=== PATIENT | female | born 1980 | race Caucasian/White ===

== ENCOUNTER 2019-03-22 21:47 | Inpatient (IN) | payer MEDICAID ==
[~2019-03-22] VITALS: Ht 154.9 cm; Wt 51.7 kg
--- NOTE | 2019-03-22 21:54 | NUR ---
PT [id number] FROM HOME C/O ABDOMINAL PAIN X1 DAY. RECENTLY HAD JESUS REMOVED FROM SURGERY ON 03/03/19. ALSO C/O SHARP BACK PAIN X1 DAY. BS118. PT AOX4. PT IN GOWN ON MONITOR IN BED 11. WILL CONTINUE TO MONITOR.
--- NOTE | 2019-03-22 22:15 | NUR ---
BLOOD DRAWN AND GIVEN TO PHLEB
--- NOTE | 2019-03-22 22:17 | NUR ---
TECH AT BEDSIDE FOR EKG
[2019-03-22] MEDS ORDERED: HYDROMORPHONE 1 MG/1 ML DISP.SYRIN ONE (22:20)
[2019-03-22] MEDS ORDERED: ONDANSETRON HCL/PF 4 MG/2 ML VIAL ONE (22:20)
[2019-03-22 22:24] LABS: BASOPHILS # (AUTO) 0.1 /CMM (0.0-0.2); BASOPHILS % (AUTO) 0.5 % (0.0-2.0); EOSINOPHILS % (AUTO) 0.6 % (0.0-6.0); HEMATOCRIT 33 % (33-45); HEMOGLOBIN 11.2 g/dL (11.5-14.8); LYMPHOCYTES # (AUTO) 2.2 /CMM (0.8-4.8); LYMPHOCYTES % (AUTO) 20.3 % (20.0-44.0); MEAN CORPUSCULAR HGB CONC 34 g/dl (31.0-36.0); MEAN CORPUSCULAR VOLUME 87 fL (82-100); MONOCYTES # (AUTO) 1.4 /CMM (0.1-1.30); MONOCYTES % (AUTO) 12.8 % (2.0-12.0); NEUTROPHILS # (AUTO) 7.2 /CMM (1.8-8.9); NEUTROPHILS % (AUTO) 65.8 % (43.0-81.0); PLATELET COUNT (AUTO) 454 /CMM (150-450); RED BLOOD CELL COUNT(AUTO) 3.76 MIL/uL (4.0-5.2); WHITE BLOOD COUNT (AUTO) 10.9 K/uL (4.3-11.0)
[2019-03-22] MEDS ORDERED: CT SWABBABLE VALVE TRANS SET 1 EA INFUS.SET MC ONE (22:29)
[2019-03-22] MEDS ORDERED: IOHEXOL-350 100 ML VIAL IV ONE (22:29)
[2019-03-22] MEDS ORDERED: IV NS 0.9% 250 ML IV ONE (22:29)
[2019-03-22] MEDS ORDERED: IV NS 0.9% 500 ML BAG IV ONE (22:30)
[2019-03-22] MEDS ORDERED: HYDROMORPHONE INJ 2 MG/ML DISP.SYRIN IV ONE (22:30)
[2019-03-22] MEDS ORDERED: ONDANSETRON HCL/PF 4 MG/2 ML VIAL IVP ONE (22:30)
[2019-03-22 22:32] LABS: CALCIUM, SERUM 9.1 mg/dL (8.5-10.1); CARBON DIOXIDE 28 mmol/L (21-32); CHLORIDE 100 mmol/L (98-107); CREATININE 0.5 mg/dL (0.6-1.3); GLUCOSE 97 mg/dL (74-106); POTASSIUM 3.6 mmol/L (3.5-5.1); SODIUM SERUM 138 mmol/L (136-145); UREA NITROGEN, BLOOD 11 mg/dL (7-18)
[2019-03-22 22:45] LABS: ALANINE AMINOTRANSFERASE 16 U/L (12-78); ALKALINE PHOSPHATASE 57 U/L (46-116); ASPARTATE AMINOTRANSFERASE 20 U/L (15-37); B-TYPE NATRIURETIC PEPTIDE 53 PG/ML (0-125); BILIRUBIN,TOTAL 0.4 mg/dL (0.2-1.0)
--- NOTE | 2019-03-22 22:55 | NUR ---
PT TAKEN TO RADIOLOGY VIA ADDIE
--- NOTE | 2019-03-22 23:11 | NUR ---
PT RETURNED FROM CT. PT TOLERATED WELL.
[2019-03-23] VITALS (13 sets, daily range): BP systolic 88–109; BP diastolic 50–81
--- NOTE | 2019-03-23 00:06 | NUR ---
CALLED ELAINA RE: CTA
[2019-03-23] MEDS ORDERED: PIPERACILLIN /TAZOBACTAM 3.375 G VIAL IV ONE (00:30)
[2019-03-23] MEDS ORDERED: PIPERACILLIN /TAZOBACTAM 3.375 G in IV D5W 50 ML IV ONE (00:30)
[2019-03-23] MEDS ORDERED: ENOXAPARIN SODIUM 60 MG/0.6 ML DISP.SYRIN SQ ONE ×2 (00:30→00:31)
--- NOTE | 2019-03-23 01:43 | NUR ---
REPORT GIVEN TO ICU NURSE FOR MAGGIE
[2019-03-23 01:55] LABS: APPEARANCE,URINE Clear (CLEAR); BILIRUBIN,URINE SMALL (NEGATIVE); BLOOD, URINE Large Ery/uL (NEGATIVE); COLOR,URINE Orange (YELLOW); KETONES,URINE >=160 (NEGATIVE); LEUKOCYTE ESTERASE ,URINE Negative (NEGATIVE); NITRITE, URINE Negative (NEGATIVE); PH,URINE 5.5 (5.0-8.0); PROTEIN,URINE Trace mg/dl (NEGATIVE); UGLUCOSE Negative (NEGATIVE); UROBILINOGEN,URINE 0.2 EU/dL (0.2)
[2019-03-23] MEDS ORDERED: ZOLPIDEM TARTRATE 5 MG TABLET PO PRN (02:00)
[2019-03-23] MEDS ORDERED: ACETAMINOPHEN 325 MG TABLET PO PRN (02:00)
[2019-03-23] MEDS ORDERED: IV 1/2NS 1000 ML 1,000 ML IV SCH (02:30)
[2019-03-23] MEDS ORDERED: MORPHINE SULFATE INJ 2 MG/ML DISP.SYRIN IM PRN (02:30)
[2019-03-23] MEDS ORDERED: VANCOMYCIN 1.25 GM in IV D5W 500 ML IV ONE (03:00)
[2019-03-23 03:11] LABS: BACTERIA,URINE Few /HPF (None Seen); RBC,URINE TOO NUMEROUS TO COUN /HPF (0-2); SQUAMOUS EPITHELIAL CELL,UR Rare /HPF (None Seen)
[2019-03-23] MEDS ORDERED: VANCOMYCIN 1 GM VIAL ONE (03:35)
[2019-03-23] MEDS ORDERED: VANCOMYCIN 500 MG VIAL ONE (03:35)
[2019-03-23 05:10] LABS: BASOPHILS % (AUTO) 0.4 % (0.0-2.0); EOSINOPHILS % (AUTO) 0.6 % (0.0-6.0); HEMATOCRIT 30 % (33-45); HEMOGLOBIN 10.3 g/dL (11.5-14.8); LYMPHOCYTES # (AUTO) 2.9 /CMM (0.8-4.8); LYMPHOCYTES % (AUTO) 28.9 % (20.0-44.0); MEAN CORPUSCULAR HGB CONC 34 g/dl (31.0-36.0); MEAN CORPUSCULAR VOLUME 87 fL (82-100); MONOCYTES # (AUTO) 1.2 /CMM (0.1-1.30); NEUTROPHILS # (AUTO) 5.8 /CMM (1.8-8.9); NEUTROPHILS % (AUTO) 58.1 % (43.0-81.0); PLATELET COUNT (AUTO) 375 /CMM (150-450); RED BLOOD CELL COUNT(AUTO) 3.46 MIL/uL (4.0-5.2); WHITE BLOOD COUNT (AUTO) 9.9 K/uL (4.3-11.0)
[2019-03-23 05:30] LABS: ALBUMIN 2.3 g/dL (3.4-5.0); BILIRUBIN,TOTAL 0.4 mg/dL (0.2-1.0); CALCIUM, SERUM 8.1 mg/dL (8.5-10.1); CREATININE 0.5 mg/dL (0.6-1.3); MAGNESIUM 1.8 mg/dL (1.8-2.4); PHOSPHORUS 3.7 mg/dL (2.5-4.9); POTASSIUM 3.8 mmol/L (3.5-5.1); TOTAL PROTEIN, SERUM 6.4 g/dL (6.4-8.2)
[2019-03-23] MEDS ORDERED: FEE PK DOSING 1 MIN EA MC ONE (06:46)
[2019-03-23] MEDS ORDERED: ZOSYN IVPB 3.375 G in IV D5W 50ml IV ONE (07:00)
--- NOTE | 2019-03-23 07:04 | NUR ---
RN NOTES 02:04 AM - ADMITTED TO ICU DUE TO PULMONARY EMBOLISM, PNA ON PUJA. LOBES. PATIENT IS FROM ER AOX3 VERBALLY RESPONSIVE. WITH HX OF GASTRIC ADENOCARCINOMA S/P EXLAP WITH GASTRIC RESECTION FOR KNOWN MALIGNANCY AT [facility] LAST 03/05/19. NKA. PLACED PT ON O2 2LPM VIA NC . AMBULATE AND TRANSFER SELF WITH ASSIST FROM GURNEY TO BED. ST ON TELE MONITOR. IV SITE ON RAC G 20 AND LH G 20 RUNNING WITH 1/2 NS @ 75 ML/HR. INTACT AND PATENT. PT VISITED BY , NATALIO ABOUT VISITING HOURS. KEPT PT CLEAN AND COMFORTABLE IN BED. ALL NEEDS ATTENDED CALL LIGHT KEPT WITHIN EASY REACH INSTRUCTION PROVIDED. WILL CONTINUE TO MONITOR.
--- NOTE | 2019-03-23 07:44 | NUR ---
STK MED IN [facility] NON ADMINISTERED FOR PT SAFETY.
[2019-03-23] MEDS: PIPERACILLIN /TAZOBACTAM 3.375 G in IV D5W 100 ML IV SCH ×2 (08:15→16:20)
[2019-03-23] MEDS ORDERED: ALBU8.5H8 IH (08:37)
[2019-03-23] MEDS ORDERED: AZIT250T PO (08:37)
[2019-03-23] MEDS ORDERED: ENOXAPARIN SODIUM 60 MG/0.6 ML DISP.SYRIN SQ SCH (09:00)
--- NOTE | 2019-03-23 09:00 | NUR ---
Pt seen & examined by Dr. Schneider. Verbal ordered to do VADIM Doppler of BLE.
--- NOTE | 2019-03-23 09:30 | NUR ---
Rec'd call from Dr. Howard, updated about pt status & condition. to see pt in a while.
[2019-03-23] MEDS ORDERED: IV NS 0.9% 1,000 ML IV PRN (11:00)
[2019-03-23] MEDS ORDERED: Potassium Chloride 20 MEQ in IV D5/ 0.9% NACL 1,000 ML IV PRN (11:00)
--- NOTE | 2019-03-23 11:30 | NUR ---
Health teaching done to pt regarding current disease process & pain management. Pt verbalizing that she doesn't want Dr. Howard to be his MD. Pt questioning MD's order. CN made aware. Dr. Howard made aware of this as well. Spoke w/ ADRIAN Mendoza & per CM will transfer pt to [facility] per her insurance. Pt informed about this & is upset now wanting to talk to the CM regarding the transfer. ADRIAN Mendoza to see pt. Addendum: 03/23/19 at 1300 by MARGO BURNS RN [id number] ADRIAN Mendoza was able to talk to the pt at bedside.
[2019-03-23] MEDS ORDERED: VANCOMYCIN 0.75 GM in IV D5W 250 ML IV SCH (12:00)
[2019-03-23] MEDS: RIVAROXABAN 15 MG TABLET PO SCH ×2 (12:17→16:19)
--- NOTE | 2019-03-23 12:50 | NUR ---
ICU/PUBLIC RELATIONS PLAYER OF CARE PT ENDORSED BY ICU MARGO TO CONTINUE CARE.
--- NOTE | 2019-03-23 12:50 | NUR ---
ICU TRANSFER NOTES: Pt transferred to [facility] 111/1 as ordered. IV lines kept patent & intact w/ no s/sx of infection/infiltration. All belongings sent w/ pt. Report given to Meche SHELTON. No concerns/issues identified during transfer.
--- NOTE | 2019-03-23 19:30 | NUR ---
MS/RN OPENING NOTES PT RECEIVED AWAKE, RESTING COMFORTABLY IN BED. A/OX4. PLACED ON 2L O2 VIA NC, BREATHING EVEN AND UNLABORED. DENIES SOB BUT NOTES 5/10 BACK PAIN UPON INSPIRATION AND COUGHING. PAIN MEDS OFFERED HOWEVER PT REFUSED AT THIS TIME. IN NO ACUTE RESPIRATORY DISTRESS. IV TO RAC PATENT AND INTACT RUNNING IVF ORDERED, IV TO LEFT HAND CURRENTLY RUNNING ZOSYN. REPOSITIONING AND WARM BLANKETS PROVIDED PER PT REQUEST. NO ADDITIONAL NEEDS EXPRESSED AT THIS TIME. BED IN LOW/LOCKED POSITION WITH HOB ELEVATED. WILL CONTINUE TO MONITOR
--- NOTE | 2019-03-23 19:30 | NUR ---
MS1/RN AM SHIFT INITIAL NOTES NO ACUTE CHANGE OF CONDITION NOTED SINCE PT WAS ENDORSED TO CONTINUE CARE. ALL NEEDS MET. PT ENDORSED TO PM NURSE TO CONTINUE CARE. CL WITHIN REACHED AND SAFETY MAINTAINED.
[2019-03-23] MEDS: VANCOMYCIN 1.25 GM in IV D5W 500 ML IV SCH (20:22)
--- NOTE | 2019-03-23 23:33 | NUR ---
RN NOTES IV TO LEFT HAND INFILTRATION. IV REMOVED AND IVF RESUMED TO RAC. EDUCATED PT TO ELEVATE EXTREMITY TO REDUCE SWELLING. WILL TRY IN INSERT NEW IV
[2019-03-24] MEDS: PIPERACILLIN /TAZOBACTAM 3.375 G in IV D5W 100 ML IV SCH ×3 (00:21→16:31)
--- NOTE | 2019-03-24 00:25 | NUR ---
RN NOTES NEW IV INSERTED TO LEFT HAND #24. FLUSHES WELL. ZOSYN CONNECTED AND INFUSING. IV TO RAC PATENT RUNNING IVF ORDERED.
[2019-03-24] MEDS: VANCOMYCIN 1.25 GM in IV D5W 500 ML IV SCH (03:26)
[2019-03-24 04:00] VITALS: BP 90/54
--- NOTE | 2019-03-24 06:33 | NUR ---
MS/RN CLOSING NOTES PT ASLEEP, RESPONSIVE TO NAME. A/OX4. ON 2L O2 VIA NC, BREATHING EVEN AND UNLABORED. DENIES SOB AND PAIN AT THIS TIME. IV TO RAC AND LEFT HAND PATENT AND INTACT. ASSISTED TO THE BATHROOM WITH STANDBY ASSIST. IN NO ACUTE RESPIRATORY DISTRESS. BED IN LOW/LOCKED POSITION WITH CALL LIGHT IN REACH. BILAT. UPPER SIDE RAILS IN PLACE, HOB ELEVATED. WILL ENDORSE TO ONCOMING SHIFT MAGGIE.
[2019-03-24 08:00] VITALS: BP_SYST 102; BP_DIAS 46; BP_DIAS 61
[2019-03-24 08:04] LABS: BASOPHILS % (AUTO) 0.6 % (0.0-2.0); EOSINOPHILS % (AUTO) 2.9 % (0.0-6.0); HEMATOCRIT 29 % (33-45); HEMOGLOBIN 9.8 g/dL (11.5-14.8); MEAN CORPUSCULAR HGB CONC 34 g/dl (31.0-36.0); MEAN CORPUSCULAR VOLUME 86 fL (82-100); MONOCYTES # (AUTO) 1.2 /CMM (0.1-1.30); MONOCYTES % (AUTO) 16.2 % (2.0-12.0); NEUTROPHILS % (AUTO) 53.3 % (43.0-81.0); PLATELET COUNT (AUTO) 386 /CMM (150-450); RED BLOOD CELL COUNT(AUTO) 3.32 MIL/uL (4.0-5.2); WHITE BLOOD COUNT (AUTO) 7.5 K/uL (4.3-11.0)
[2019-03-24 08:11] LABS: CALCIUM, SERUM 8.1 mg/dL (8.5-10.1); CREATININE 0.5 mg/dL (0.6-1.3); POTASSIUM 3.3 mmol/L (3.5-5.1)
[2019-03-24] MEDS: RIVAROXABAN 15 MG TABLET PO SCH ×2 (08:16→16:53)
[2019-03-24] MEDS ORDERED: POTASSIUM CHLORIDE 20 MEQ TAB.PRT.SR PO ONE (08:30)
[2019-03-24 09:09] LABS: EOSINOPHILS % (MANUAL) 5 % (0-4); LYMPHOCYTES % (MANUAL) 25 % (16-48); MONOCYTES % (MANUAL) 13 % (0-11.0); NEUTROPHILS % (MANUAL) 57 (42-76)
[2019-03-24] MEDS ORDERED: BISACODYL (5 MG) 5 MG TABLET.DR PO PRN (15:00)
[2019-03-24 16:00] VITALS: BP 131/72
--- NOTE | 2019-03-24 19:14 | NUR ---
Handoff to night nurse, CAT Chambers. Nik Eddy RN
--- NOTE | 2019-03-24 20:00 | NUR ---
RECIEVED ALERT AND ORIENTATED SMILING SOFT SPOKEN GOOD EYE CONTACT EXPLAINED TO HER WHAT WOULD BE DONE TONIGHT AND HER MEDICATIONS. STATED SHE HAD A GOOD FORMED BM AFTER THE MEDICATION THAT WAS GIVEN EARLIER
[2019-03-24] MEDS: VANCOMYCIN 0.75 GM in IV D5W 250 ML IV SCH (20:16)
[2019-03-24 21:14] VITALS: BP 102/63
[2019-03-24 22:00] VITALS: BP 102/63
[2019-03-24] MEDS: ONDANSETRON HCL/PF 4 MG/2 ML VIAL IVP PRN ×4 (22:34→23:32)
[2019-03-25] MEDS: PIPERACILLIN /TAZOBACTAM 3.375 G in IV D5W 100 ML IV SCH ×2 (00:11→08:35)
[2019-03-25] MEDS: VANCOMYCIN 0.75 GM in IV D5W 250 ML IV SCH ×2 (04:07→12:00)
--- NOTE | 2019-03-25 04:52 | NUR ---
ending notes; SLEPT THRU THE NIGHT. AT THE BEGINNING OF THE SHIFT SHE WAS ANXIOUS VERBALIZING CONCERNS ABOUT HER MEDICATIONS AND THE VANCO TROUGH. EASILY REASSURED. SHE STATED SHE HAD A GOOD FORMED SOFT BM BUT NOW THEY ARE COMING OUT WATERY. HER 02 SATS ON ROOM AIR 95 -98% SHE IS ABLE TO TALK IN SENTENCES W/O BECOMING SOB AMBULATES TO THE BATHROOM W/O BECOMING SOB. FAMILY CAME TO VISIT HER EARLIER IN THE SHIFT.
[2019-03-25 05:18] VITALS: BP 120/52
[2019-03-25 05:27] VITALS: BP 90/56
--- NOTE | 2019-03-25 07:30 | NUR ---
MS RN Opening Note Patient currently resting in bed with eyes open in Semi-Fowlers position, no acute distress noted. Easily arousable to verbal and tactile stimuli. Alert and oriented x4, able to make needs known. No acute distress. Respirations even and unlabored on room air. Peripheral IV access to the right AC 20 gauge, intact, patent and saline locked; access to the left hand 24 gauge, intact, patent and infusing fluids as ordered. Safety and fall precautions in place: bed in lowest and locked position, side rails up x2, bed alarm on, call light and personal possessions in reach, room well lit, floor clutter-free. Patient currently clean, dry and comfortable. Will continue to monitor and intervene as needed.
[2019-03-25 07:38] LABS: BASOPHILS % (AUTO) 0.5 % (0.0-2.0); EOSINOPHILS % (AUTO) 3.5 % (0.0-6.0); HEMATOCRIT 27 % (33-45); HEMOGLOBIN 9.3 g/dL (11.5-14.8); LYMPHOCYTES % (AUTO) 29.9 % (20.0-44.0); MEAN CORPUSCULAR HGB CONC 34 g/dl (31.0-36.0); MEAN CORPUSCULAR VOLUME 86 fL (82-100); NEUTROPHILS # (AUTO) 3.5 /CMM (1.8-8.9); NEUTROPHILS % (AUTO) 52.1 % (43.0-81.0); PLATELET COUNT (AUTO) 363 /CMM (150-450); RED BLOOD CELL COUNT(AUTO) 3.12 MIL/uL (4.0-5.2); WHITE BLOOD COUNT (AUTO) 6.8 K/uL (4.3-11.0)
[2019-03-25 08:01] LABS: CALCIUM, SERUM 8.5 mg/dL (8.5-10.1); CREATININE 0.7 mg/dL (0.6-1.3); POTASSIUM 3.5 mmol/L (3.5-5.1)
[2019-03-25] MEDS: RIVAROXABAN 15 MG TABLET PO SCH (08:37)
[2019-03-25] MEDS ORDERED: POLYETHYLENE GLYCOL 3350 17 GM POWD.PACK PO SCH (09:00)
[2019-03-25] MEDS ORDERED: LEVO500T75 PO (09:40)
[2019-03-25] MEDS ORDERED: RIVA10TA PO (09:40)
[2019-03-25 10:00] VITALS: BP 92/62
[2019-03-25] MEDS ORDERED: KEY,NONCONTROL,TO KEEP IN PYXI 1 EA MC ONE ×2 (10:29→13:20)
--- NOTE | 2019-03-25 16:10 | NUR ---
MS lead massage therapist Note Patient currently resting in bed with eyes open in Semi-Fowlers position, no acute distress noted. Easily arousable to verbal stimuli. Alert and oriented x4, able to make needs known. Respirations even and unlabored on room air. Peripheral IV access to the right AC 20 gauge and left hand 24 gauge removed with catheter tip intact. No redness, swelling or bleeding of the sites noted. ID bands removed. Refused skin assessment per protocol. Ambulates with steady gait. Discharge education, Exitcare and prescription information given to patient with spouse present. Verbalized understanding and signed form to acknowledge. All personal belongings accounted for. Discharged to [facility] in stable condition via wheelchair, escorted by staff. Discharged home via private car accompanied by family member, spouse.
== END 2019-03-25 16:10 | disposition home or self-care (01) | DRG 134 ==
LOC: ER 21:48 → ICU 03-23 01:23 → MEDSG1 03-23 12:27 → MEDSG2 03-24 16:02 → MEDSG1 03-24 16:41
PROVIDERS: ADMIT Student in an Organized Health Care Education/Training Program; ATTEND Internal Medicine
DX: I26.99 Other pulmonary embolism without acute cor pulmonale (principal); J15.9 Unspecified bacterial pneumonia; D68.59 Other primary thrombophilia; J90 Pleural effusion, not elsewhere classified; E44.1 Mild protein-calorie malnutrition; E88.09 Other disorders of plasma-protein metabolism, not elsewhere classified; E87.6 Hypokalemia; D50.9 Iron deficiency anemia, unspecified; D64.9 Anemia, unspecified; D47.3 Essential (hemorrhagic) thrombocythemia; Z68.21 Body mass index [BMI] 21.0-21.9, adult; Z85.028 Personal history of other malignant neoplasm of stomach; J98.11 Atelectasis; Z90.3 Acquired absence of stomach [part of]; M54.89 Other dorsalgia
CPT/HCPCS: 36415; 71045-TC; 72080-TC; 80048-TC; 80053-TC; 80076-TC; 80202-TC; 81000-TC; 83540-TC; 83605-TC; 83735-TC; 83880; 84100-TC; 84484-TC; 84703-TC; 85025-TC; 85730-TC; 87040-TC; 87081-TC; 93307-TC; 93970-TC; 97116-TC; 97530-TC; G0378; J1170; J1650; J2270; J2405; J2543; J3370; J3480; J3490; J7030; J7040; J7042; J7050; J7060; Q9967

== ENCOUNTER 2021-04-14 15:59 | Inpatient (IN) | payer MEDICAID ==
[~2021-04-14] VITALS: Ht 154.9 cm; Wt 49.9 kg
[~2021-04-14 15:59] MED LIST: ALBU8.5H8 IH; LEVO500T23 PO; RIVA10TA PO
--- NOTE | 2021-04-14 16:00 | NUR ---
PT BIB SELF C/O L GROIN PAIN STARTED LAST NIGH. PT IS AAOX4, NOT IN RESPIRATORY DISTRESS, V/S STABLE, KEPT RESTED AND COMFORTABLE. WILL CONTINUE TO MONITOR.
--- NOTE | 2021-04-14 16:16 | NUR ---
SEEN AND EXAMINED BY .
--- NOTE | 2021-04-14 16:20 | NUR ---
FWS FACULTY ASSISTANT AT BEDSIDE FOR ULTRASOUND.
[2021-04-14 17:11] LABS: BASOPHILS % (AUTO) 0.7 % (0.0-2.0); EOSINOPHILS % (AUTO) 0.7 % (0.0-6.0); HEMATOCRIT 29 % (33-45); HEMOGLOBIN 8.4 g/dL (11.5-14.8); LYMPHOCYTES # (AUTO) 3.1 K/uL (0.8-4.8); LYMPHOCYTES % (AUTO) 47.8 % (20.0-44.0); MEAN CORPUSCULAR HGB CONC 30 g/dl (31.0-36.0); MEAN CORPUSCULAR VOLUME 68 fL (82-100); MONOCYTES # (AUTO) 0.6 K/uL (0.1-1.30); MONOCYTES % (AUTO) 8.5 % (2.0-12.0); NEUTROPHILS # (AUTO) 2.8 K/uL (1.8-8.9); NEUTROPHILS % (AUTO) 42.3 % (43.0-81.0); PLATELET COUNT (AUTO) 212 K/uL (150-450); RED BLOOD CELL COUNT(AUTO) 4.24 MIL/uL (4.0-5.2); WHITE BLOOD COUNT (AUTO) 6.5 K/uL (4.3-11.0)
[2021-04-14 17:25] LABS: BILIRUBIN,URINE NEGATIVE (NEGATIVE); LEUKOCYTE ESTERASE ,URINE TRACE (NEGATIVE); NITRITE, URINE POSITIVE (NEGATIVE); PH,URINE 6.5 (5.0-8.0); PROTEIN,URINE 100 mg/dl (NEGATIVE); UGLUCOSE NEGATIVE (NEGATIVE)
[2021-04-14 17:28] LABS: COLOR,URINE RED (YELLOW)
[2021-04-14 17:31] LABS: BACTERIA,URINE None seen /HPF (None Seen); RBC,URINE TOO NUMEROUS TO COUN /HPF (0-2); SQUAMOUS EPITHELIAL CELL,UR 0-2 /HPF (None Seen)
[2021-04-14 17:52] LABS: CALCIUM, SERUM 8.6 mg/dL (8.5-10.1); CREATININE 0.7 mg/dL (0.6-1.3)
[2021-04-14 17:58] LABS: ALBUMIN 3.8 g/dL (3.4-5.0); BILIRUBIN,DIRECT 0.1 mg/dL (0.0-0.2); BILIRUBIN,TOTAL 0.3 mg/dL (0.2-1.0); TOTAL PROTEIN, SERUM 7.5 g/dL (6.4-8.2)
[2021-04-14 18:14] LABS: LYMPHOCYTES % (MANUAL) 47 % (16-48); MONOCYTES % (MANUAL) 7 % (0-11.0); NEUTROPHILS % (MANUAL) 46 (42-76)
--- NOTE | 2021-04-14 21:22 | NUR ---
PER DAVION CARLISLE, UNABLE TO FIND HOSPITAL WITH OB-STAFF INTERNIST OFFICE BASED ONLY. OK TO ADMIT AT [facility].
--- NOTE | 2021-04-14 21:23 | NUR ---
DR LEANDRO SHARMA PER DR LÓPEZ
--- NOTE | 2021-04-14 22:08 | NUR ---
MS 323-2
--- NOTE | 2021-04-14 22:19 | NUR ---
REPORT GIVEN TO YEHUDA SHELTON FOR MAGGIE
--- NOTE | 2021-04-14 23:00 | NUR ---
MS DIRECTOR OF SAFETY NOTES: RECEIVED PATIENT FROM ER VIA RNEY AT 2300, A/OX4, ABLE TO MAKE NEEDS KNOWN, AMBULATORY , CC IS SHARP PAIN AT LOWER ABDOMEN, WITH IV LINE AT ASHLEE #18 WITH D5 NS @100ML/HR, ALLERGY TO ASPIRIN AND IBUPROFEN, FOR OBG CONSULTATION TOMORROW, PATIENT ON NPO POST MIDNIGHT FOR POSSIBLE SURGERY, SKIN ASSESSMENT DONE, NO SKIN ISSUES WAS OBSERVED, INVENTORY DONE, PATIENT KEPT COMFORTABLE BED IN LOW POSITION,ALL ORDERS NOTED AND CARRY OUT CALL LIGHTS WITHIN REACH, REMIND TO USE THE CALL LIGHTS WHEN NEEDED ASSISTANCE, WILL CONTINUE TO MONITOR.
[2021-04-15] MEDS ORDERED: IV D5/ 0.9% NACL 1,000 ML IV ONE (00:30)
[2021-04-15] MEDS ORDERED: ZOLPIDEM TARTRATE 5 MG TABLET PO PRN (00:30)
[2021-04-15] MEDS ORDERED: ACETAMINOPHEN 325 MG TABLET PO PRN (00:30)
[2021-04-15] MEDS ORDERED: HYDROCODONE/APAP 5/325MG TABLET PO PRN (00:30)
[2021-04-15] MEDS ORDERED: HYDROMORPHONE 1 MG/1 ML DISP.SYRIN IV PRN (00:30)
[2021-04-15] MEDS ORDERED: ONDANSETRON HCL/PF 4 MG/2 ML VIAL IV PRN (00:30)
[2021-04-15 01:19] VITALS: BP 96/61
--- NOTE | 2021-04-15 06:47 | NUR ---
RN CLOSING NOTES PATIENT SLEEP IN BED COMFORTABLY, AROUSABLE TO STIMULUS, A/OX4 AMBULATORY AND MAKE NEEDS KNOWN, IV ON ASHLEE #18 WITH D5NSS@100ML/HR INFUSING WELL, PATIENT IS NPO, POST MIDNIGHT FOR OBGY EVALUATION FOR POSSIBLE SURGERY, BED IN LOW POSITION, CALL LIGHTS WITHIN REACH, ALL NEEDS MET, ENDORSE TO INCOMING SHIFT.
[2021-04-15 07:09] LABS: BASOPHILS % (AUTO) 0.7 % (0.0-2.0); EOSINOPHILS % (AUTO) 1.8 % (0.0-6.0); HEMATOCRIT 26 % (33-45); HEMOGLOBIN 7.5 g/dL (11.5-14.8); LYMPHOCYTES # (AUTO) 3.1 K/uL (0.8-4.8); LYMPHOCYTES % (AUTO) 59.4 % (20.0-44.0); MEAN CORPUSCULAR HGB CONC 30 g/dl (31.0-36.0); MEAN CORPUSCULAR VOLUME 68 fL (82-100); MONOCYTES # (AUTO) 0.6 K/uL (0.1-1.30); NEUTROPHILS # (AUTO) 1.4 K/uL (1.8-8.9); NEUTROPHILS % (AUTO) 27.1 % (43.0-81.0); PLATELET COUNT (AUTO) 177 K/uL (150-450); RED BLOOD CELL COUNT(AUTO) 3.74 MIL/uL (4.0-5.2); WHITE BLOOD COUNT (AUTO) 5.3 K/uL (4.3-11.0)
--- NOTE | 2021-04-15 07:45 | NUR ---
RN OPENING NOTE PT AWAKE IN BED RESTING. A/O X3 AND BURKINAN SPEAKING. PAIN PRESENT ON L ABDOMEN 05/29. NO NAUSEA PRESENT. CURRENTLY ON RA WITH NO SOB OR RESPIRATORY DISTRESS PRESENT. NO TORCH OPERATOR PRESENT. NO EDEMA PRESENT. SELF AMBULATORY WITH BATHROOM PRIVILEGES. SKIN IS INTACT. NPO STATUS DUE TO UPCOMING SURGERY. IV PRESENT ON ASHLEE 18 AND FLUSHES WELL. LABS AND ORDERS REVIEWED. SAFETY MEASURES IN PLACE. SIDE RAILS RAISED. BED LOWERED. CALL LIGHT WITHIN REACH. WILL CONTINUE TO MONITOR.
[2021-04-15 07:47] LABS: CALCIUM, SERUM 7.9 mg/dL (8.5-10.1); CREATININE 0.6 mg/dL (0.6-1.3); POTASSIUM 3.7 mmol/L (3.5-5.1)
[2021-04-15 08:00] VITALS: BP 86/55
[2021-04-15 08:04] LABS: EOSINOPHILS % (MANUAL) 3 % (0-4); LYMPHOCYTES % (MANUAL) 51 % (16-48); MONOCYTES % (MANUAL) 11 % (0-11.0); NEUTROPHILS % (MANUAL) 35 (42-76)
[2021-04-15 08:48] LABS: THYROID STIMULATING HORMONE 0.705 uIU/mL (0.358-3.74)
[2021-04-15] MEDS ORDERED: SOD FERRIC GLUC 125 MG in IV NS 0.9% 100 ML IV ONE (12:00)
--- NOTE | 2021-04-15 13:53 | NUR ---
PROPERTY UTILIZATION MANAGER NOTE PT DICHARGED HOME VIA PRIVATE CAR. IV LINE REMOVED. ID BAND REMOVED. PRESCRIPTION GIVEN TO PT. BELONGINGS CHECKED AND GIVEN TO PT. SKIN IS INTACT. F/U WITH OBGYN EDUCATED TO PT. EXITCARE UTILIZED AND EDUCATION GIVEN TO PT.
== END 2021-04-15 13:20 | disposition home or self-care (01) | DRG 532 ==
LOC: ER 16:08 → MED 22:42
PROVIDERS: ADMIT Internal Medicine; ATTEND Internal Medicine
DX: N83.202 Unspecified ovarian cyst, left side (principal); D50.9 Iron deficiency anemia, unspecified; Z85.028 Personal history of other malignant neoplasm of stomach; Z90.3 Acquired absence of stomach [part of]; Z88.6 Allergy status to analgesic agent; Z88.8 Allergy status to other drugs, medicaments and biological substances; Z79.51 Long term (current) use of inhaled steroids; Z79.01 Long term (current) use of anticoagulants; N92.0 Excessive and frequent menstruation with regular cycle; Z86.711 Personal history of pulmonary embolism
CPT/HCPCS: 36415; 76856-TC; 80048-TC; 80076-TC; 81001; 83540-TC; 83690-TC; 84443-TC; 84703-TC; 85025-TC; 87081-TC; 87086-TC; C9803; G0378; J1170; J2916; J7030